=== PATIENT | female | born 1995 | race Caucasian/White ===

== ENCOUNTER 2017-03-13 18:13 | Emergency (ER) | payer OTHER ==
--- NOTE | 2017-03-13 18:25 | UC ---
Respiratory Complaint HPI - HPI Summary HPI Summary: 21 YEAR OLD FEMALE PRESENTS WITH COMPLAINS OF COUGH, CHILLS AND FATIGUE. ON A SIDE NOTE SHE IS ON [employer]. - History of Current Complaint Chief Complaint: UCRespiratory Stated Complaint: COUGH, AND CHEST CONGESTION Time Seen by Provider: 03/13/17 18:24 Hx Obtained From: Patient Hx Last Menstrual Period: 02/28/17 Onset/Duration: Sudden Onset Severity Initially: Moderate Severity Currently: Moderate Pain Scale Used: 0-10 Numeric - 4 - Allergies/Home Medications Allergies/Adverse Reactions: Allergies Allergy/AdvReac Type Severity Reaction Status Date / Time No Known Allergies Allergy Verified 03/13/17 18:20 PMH/Surg Hx/FS Hx/Imm Hx Previously Healthy: Yes - Surgical History Surgical History: Yes Surgery Procedure, Year, and Place: hernia - Social History Alcohol Use: None Substance Use Type: None Smoking Status (MU): Never Smoked Tobacco Review of Systems Constitutional: Negative Skin: Negative Eyes: Negative ENT: Sore Throat, Nasal Discharge, Sinus Congestion, Sinus Pain/Tenderness Respiratory: Cough Cardiovascular: Negative Gastrointestinal: Negative Genitourinary: Negative Motor: Negative Neurovascular: Negative Musculoskeletal: Negative Neurological: Negative Psychological: Negative All Other Systems Reviewed And Are Negative: Yes Physical Exam Triage Information Reviewed: Yes Appearance: Ill-Appearing Vital Signs: Initial Vital Signs Temp 36.6 C 03/13/17 18:21 Pulse 85 03/13/17 18:21 Resp 20 03/13/17 18:21 Pulse Ox 100 03/13/17 18:21 Eye Exam: Normal ENT: Positive: Pharyngeal erythema, Nasal congestion Dental Exam: Normal Neck exam: Normal Neck: Positive: 1 Respiratory: Positive: Wheezing Cardiovascular Exam: Normal Abdominal Exam: Normal Musculoskeletal Exam: Normal Neurological Exam: Normal Psychological Exam: Normal Skin Exam: Normal UC Diagnostic Evaluation - Laboratory O2 Sat by Pulse Oximetry: 100 Respiratory Course/Dx - Differential Dx/Diagnosis Provider Diagnoses: COUGH. WHEEZING. NASAL CONGESTION Discharge - Discharge Plan Condition: Stable Disposition: HOME Prescriptions: Albuterol HFA INHALER* [Ventolin HFA Inhaler*] 1 puff INH Q6H PRN #1 mdi PRN Reason: Wheezing Benzonatate [TESSALON 200 MG CAP] 200 mg PO TID PRN #30 cap PRN Reason: Cough LoraTADine TAB(NF) [Claritin 10 MG TAB(NF)] 10 mg PO DAILY #30 tab guaiFENesin/CODIEN 100MG-10MG* [Robitussin AC 100Mg-10Mg*] 5 ml PO Q6H PRN #120 udc MDD 20 ML PRN Reason: Cough Patient Education Materials: Asthma (ED), Cold Symptoms (ED), Bronchospasm (ED) , Acute Cough (ED) Referrals: No Primary Care Phys,NOPCP [Primary Care Provider] -
[2017-03-13] MEDS ORDERED: PrednisoLONE LIQ 3 MG/ML* 15 MG/5 ML UDC PO ONE (19:17)
[2017-03-13] MEDS ORDERED: Albuterol/Ipratropium NEB.SOL* Albuterol 2.5 MG/Ipratropium 0.5 MG 3 ML INH ONE (19:17)
--- NOTE | 2017-03-13 19:22 | RAD ---
INDICATION: Cough. COMPARISON: There are no prior studies available for comparison. TECHNIQUE: Dual-energy PA and lateral views of the chest were obtained. FINDINGS: The heart is within normal limits in size. Mediastinal and hilar contours appear within normal limits. The lungs are clear. No pleural effusion is present. IMPRESSION: NO EVIDENCE FOR ACTIVE CARDIOPULMONARY DISEASE.
[2017-03-13] MEDS ORDERED: Benzonatate CAP* 100 MG PO ONE (20:04)
[2017-03-13] MEDS ORDERED: guaiFENesin LIQ* 100 MG/5 ML UDC PO ONE (20:05)
== END 2017-03-13 20:10 | disposition home or self-care (01) ==
LOC: UCEAST 18:13
DX: R05 Cough (principal); R06.2 Wheezing; R09.81 Nasal congestion
CPT/HCPCS: 71020; 87502; 87798; 99213; A9270-GY; G0463; J7510

== ENCOUNTER 2019-03-14 13:54 | Emergency (ER) | payer BC, OTHER ==
--- NOTE | 2019-03-14 15:01 | ED ---
Head Injury - HPI Summary HPI Summary: Pt. is a 23 y.o female who presents to the ER for a head injury and right knee injury that occurred earlier today. Pt. states she was playing "Quidditch" when she fell in between to males and struck head off of ground and hit right knee. Ignacio LOC. Notes mild headache and nausea. Denies vision change, vomiting, severe headache. Sxs are mild to moderate in severity. No current modifying factors. - History Of Current Complaint Chief Complaint: EDHeadInjury Stated Complaint: INJURIES SPORTS RELATED PER PT Time Seen by Provider: 03/14/19 14:25 Hx Obtained From: Patient Hx Last Menstrual Period: 02/28/17 Pain Intensity: 4 - Allergies/Home Medications Allergies/Adverse Reactions: Allergies Allergy/AdvReac Type Severity Reaction Status Date / Time No Known Allergies Allergy Verified 03/14/19 14:02 Home Medications: Home Medications Escitalopram * [Lexapro 10 mg (NF)] 10 mg PO DAILY 03/14/19 [History Confirmed 03/14/19] Ibuprofen TAB* [Advil TAB*] 400 mg PO Q6H PRN 03/14/19 [History Confirmed ] PMH/Surg Hx/FS Hx/Imm Hx Previously Healthy: Yes - Surgical History Surgery Procedure, Year, and Place: hernia Infectious Disease History: No Infectious Disease History: Denies: Hx Clostridium Difficile, Hx Hepatitis, Hx Human Immunodeficiency Virus (HIV), Hx of Known/Suspected MRSA, Hx Shingles, Hx Tuberculosis, Hx Known/ Suspected VRE, Hx Known/Suspected VRSA, History Other Infectious Disease, Traveled Outside the [place] in Last 30 Days - Family History Known Family History: Positive: Non-Contributory - Social History Occupation: Student Lives: Dormitory/Roommates Alcohol Use: Occasionally Substance Use Type: Reports: None Hx Tobacco Use: No Smoking Status (MU): Never Smoked Tobacco Review of Systems Eyes: Negative ENT: Negative Cardiovascular: Negative Respiratory: Negative Gastrointestinal: Negative Positive: Bruising Positive: Headache. Negative: Weakness, Paresthesia, Numbness, Syncope All Other Systems Reviewed And Are Negative: Yes Physical Exam Triage Information Reviewed: Yes Vital Signs On Initial Exam: Initial Vitals Temp Pulse Resp BP Pulse Ox 99 F 77 16 99/62 99 03/14/19 13:57 03/14/19 13:57 03/14/19 13:57 03/14/19 13:57 03/14/19 13:57 Vital Signs Reviewed: Yes Appearance: Positive: Well-Appearing - Pt. sitting on bed in NAD. Skin: Positive: Warm, Dry Head/Face: Positive: Normal Head/Face Inspection, Other - No posterior hematoma. Eyes: Positive: Normal, EOMI ENT: Positive: TMs normal Neck: Positive: Supple, Nontender - No midline tenderness Respiratory/Lung Sounds: Positive: Clear to Auscultation, Breath Sounds Present Cardiovascular: Positive: Normal, RRR Musculoskeletal: Positive: Normal, Strength/ROM Intact, Other - Ecchymosis to medial right knee. No bony knee tenderness or pain with ROM. Neurological: Positive: Normal, CN Intact II-III Psychiatric: Positive: Affect/Mood Appropriate Procedures - Sedation Patient Received Moderate/Deep Sedation with Procedure: No Diagnostics - Vital Signs Vital Signs Temp Pulse Resp BP Pulse Ox 03/14/19 13:57 99 F 77 16 99/62 99 - Laboratory Lab Statement: Any lab studies that have been ordered have been reviewed, and results considered in the medical decision making process. Head Injury Course/Dx Course Of Treatment: Patient presenting for evaluation after head injury. Neurological exam is unremarkable. Based on [place] head CT rules CT scanning is not indicated at this time and patient agrees. Patient has no bony tenderness to right knee and is ambulatory her without difficulty. Suspect soft tissue injury. Advised Tylenol or Motrin for headache as directed. Discuss concussion symptoms. Patient will follow up with health center. To ice and elevate leg intermittently. Return to the ER if symptoms change or worsen. Patient understands and agrees with plan. - Diagnoses Differential Diagnosis/HQI/PQRI: Concussion Without LOC, Contusion, Hematoma Provider Diagnoses: Head injury, Contusion of leg Discharge ED - Sign-Out/Discharge Documenting (check all that apply): Patient Departure - Discharge Plan Condition: Good Disposition: HOME Patient Education Materials: Concussion (ED), Head Injury (ED), Knee Pain (ED) Forms: *School Release Referrals: [facility] [Primary Care Provider] - Additional Instructions: Schedule a follow up appointment with health clinic for recheck in 2-3 days Can rotate between tylenol and motrin every 3 hours as directed for pain x 1-2 weeks Avoid reading, cellphone/TV/computer screens Ice and elevate knee Return to ER if symptoms change or worsen - Billing Disposition and Condition Condition: GOOD Disposition: Home
[2019-03-14 15:11] VITALS: BP 96/58
== END 2019-03-14 15:10 | disposition home or self-care (01) ==
LOC: ED 13:54
DX: S09.90XA Unspecified injury of head, initial encounter (principal); S80.11XA Contusion of right lower leg, initial encounter; W18.39XA Other fall on same level, initial encounter; Y92.9 Unspecified place or not applicable; Z79.899 Other long term (current) drug therapy
CPT/HCPCS: 99282